=== PATIENT | male | born 1980 | race Caucasian/White ===

== ENCOUNTER 2016-05-09 09:08 | Inpatient (IN) | payer OTHER ==
[~2016-05-09] VITALS: Ht 175.3 cm; Wt 106.2 kg
[2016-05-09] VITALS (8 sets, daily range): BP systolic 134–154; BP diastolic 80–90; PULSE 75–87; TEMP 36.4–36.9; O2SAT 92–97; Ht 175.3 cm; Wt 106.2 kg
[~2016-05-09 09:08] MED LIST: AMOX875T PO; ASPI-390 PO; orajel TOP
--- NOTE | 2016-05-09 10:02 | EMERGENCY ROOM VISIT NOTE ---
History First contact with patient: 09:48 Chief Complaint: FEVER Stated Complaint: FEVER,SWELLING TO FACE History of Present Illness The patient is a 35 year old male who presents to the Emergency Room with complaints of diffuse left sided face pain commencing in the left teeth and affecting the face, ears, eyes and throat. This gnawing sensation had commenced 1 week ago and acutely worsened two days ago. He had attempted to call some dentists for appointments but was unable to book one for various reasons including insurance issues. Patient had visited the ED yesterday where he was administered IV antibiotics and IV pain medication. After CT scans which showed no intracranial pathology, but dental caries and infection of facial tissue, he was discharged with Luz and a prescription for amoxicillin. However, patient says symptoms worsened further overnight, despite the analgesia. He has begun to experience chills alternating with diaphoresis. He is experiencing difficulty in opening his jaw and is finding it extremely painful to swallow. The pain radiating to his eyes and ear is described as sharp and are causing him to moan and writhe. Past Medical/Surgical History Medical Problems: (1) No significant medical problems Social History Smoking Status: Never Smoker Alcohol Use: occasionally Marital Status: Occupation Status: employed Current/Historical Medications Scheduled Amoxicillin & Pot Clavulanate (Augmentin 875-125 mg), 1 TAB PO BID Scheduled PRN Benzocaine (Dental) (Oral Analgesic Maximum St), 1 APPLN MT UD PRN for Pain Oxycodone Immediate Rel Tab (Roxicodone Ir), 1-2 TAB PO Q4H PRN for Severe Pain Allergies Coded Allergies: No Known Allergies (Verified , 05/09/16) Physical Exam Vital Signs Date Time Temp Pulse Resp B/P Pulse Ox O2 Delivery O2 Flow Rate FiO2 05/09/16 11:36 76 151/96 95 Room Air 05/09/16 10:58 92 Room Air 05/09/16 09:16 37.4 102 20 145/88 92 Room Air Physical Exam GENERAL: alert, lying in bed, significant distress, non-toxic HEAD: Normocephalic, atraumatic. Bilateral sinus tenderness, worse on left Minimal swelling on left side of face EYES: PERRL, EOMI, minor conjunctival injection OROPHARYNX: Difficulty in opening mouth. No erythema in along upper/posterior oropharynx, but unable to view and assess tonsils. Poor dental hygiene. Lips, buccal mucosa, and tongue normal and mucous membranes are dry EARS: Tympanic membranes show white plaques bilaterally suggestive of sclerotic lesion. ?perforation in right ear. No indication of effusion. NECK: No nuchal rigidity, cervical adenopathy present, tender to palpation LUNGS: Clear to auscultation. Normal chest wall mechanics, good air entry. No crepitations, crackles, or wheezes HEART: no murmurs, S1 normal and S2 normal CHEST: No reproducible tenderness. ABDOMEN: abdomen soft, non-tender, normo-active bowel sounds, no masses, no rebound or guarding. SKIN: Warm, pink, dry. No erythema, rashes, or bruising. EXTREMITIES: Grossly normal. Strength 5/5 in all 4 limbs. No pitting edema. Calves non tender. Strength 5/5 bilaterally. NEURO: Alert, Ox3. No focal deficits. Normal sensorium, cranial nerves II-XII grossly intact, normal speech. Medical Decision & Procedures Laboratory Results 05/09/16 10:39 Red Blood Count 5.29, Mean Corpuscular Volume 91.3, Mean Corpuscular Hemoglobin 31.9, Mean Corpuscular Hemoglobin Concent 35.0, Mean Platelet Volume 10.3, Neutrophils (%) (Auto) 76.1, Lymphocytes (%) (Auto) 13.7, Monocytes (%) (Auto) 8.2, Eosinophils (%) (Auto) 1.5, Basophils (%) (Auto) 0.4, Neutrophils # (Auto) 8.49, Lymphocytes # (Auto) 1.53, Monocytes # (Auto) 0.91, Eosinophils # (Auto) 0.17, Basophils # (Auto) 0.04 05/09/16 10:39 Test 05/09/16 10:39 White Blood Count 11.15 K/uL (4.8-10.8) Red Blood Count 5.29 M/uL (4.7-6.1) Hemoglobin 16.9 g/dL (14.0-18.0) Hematocrit 48.3 % (42-52) Mean Corpuscular Volume 91.3 fL (80-100) Mean Corpuscular Hemoglobin 31.9 pg (25-34) Mean Corpuscular Hemoglobin Concent 35.0 g/dl (32-36) Platelet Count 233 K/uL (130-400) Mean Platelet Volume 10.3 fL (7.4-10.4) Neutrophils (%) (Auto) 76.1 % Lymphocytes (%) (Auto) 13.7 % Monocytes (%) (Auto) 8.2 % Eosinophils (%) (Auto) 1.5 % Basophils (%) (Auto) 0.4 % Neutrophils # (Auto) 8.49 K/uL (1.4-6.5) Lymphocytes # (Auto) 1.53 K/uL (1.2-3.4) Monocytes # (Auto) 0.91 K/uL (0.11-0.59) Eosinophils # (Auto) 0.17 K/uL (0-0.5) Basophils # (Auto) 0.04 K/uL (0-0.2) RDW Standard Deviation 42.3 fL (36.4-46.3) RDW Coefficient of Variation 12.6 % (11.5-14.5) Immature Granulocyte % (Auto) 0.1 % Immature Granulocyte # (Auto) 0.01 K/uL (0.00-0.02) Anion Gap 7.0 mmol/L (3-11) Est Creatinine Clear Calc Drug Dose 87.6 ml/min Estimated GFR () 74.4 Estimated GFR (Non- 64.2 BUN/Creatinine Ratio 8.8 (10-20) Calcium Level 8.8 mg/dl (8.5-10.1) Medications Administered Medications (Trade) Dose Ordered Sig/Gil Route Start Time Stop Time Status Last Admin Dose Admin Ampicillin Sodium/ Sulbactam Sodium/ Sodium Chloride (Unasyn Inj/Nss 100ml) 108 ml @ 200 mls/hr NOW STAT IV 05/09/16 10:13 05/09/16 10:45 DC 05/09/16 10:37 200 MLS/HR Morphine Sulfate 2 mg 2 mg ONE STAT IV 05/09/16 10:13 05/09/16 11:20 DC 05/09/16 10:34 2 MG Sodium Chloride (Nss 1000ml) 1,000 ml @ 500 mls/hr Q2H IV 05/09/16 10:15 06/08/16 10:14 05/09/16 10:37 500 MLS/HR Medical Decision 35 male re-presents to ED with odontalgia and facial cellulitis and worsening trismus Differentials included but were not limited to Sinus infection, dental carries, facial cellulitis, facial abscess, osteonecrosis of the jaw, tetanus, TMJ pain CT reviewed from yesterday: 1. There are numerous dental caries and periapical lucencies identified. Cortical breakthrough is seen seen involving the periapical lucencies of the right central maxillary incisor and the left maxillary canine. Follow-up with dentistry is recommended. 2. There is mild inflammation involving the superficial and deep soft tissues overlying the left aspect of the maxilla and mandible. This likely represents cellulitis. No organized fluid collection is seen to indicate abscess. 3. Mildly enlarged left cervical lymph nodes are likely on a reactive basis. Patient was started on 3000mg IV ampicillin/sulbactam and given 2mg IV morphine for symptom relief. Lab work was performed: CBC showed borderline elevated of WBC, and BMP unremarkable. Blood cultures taken- results currently pending. Spoke to hospitalist Dr. Cobb, who is agreeable to assess patient for admission for IV antibiotics and analgesia Went to update the patient and his . Patient lying calmly in bed, says edge of pain taken care of and declines need for further analgesia at this time. Dispo: Patient for admission Impression Primary Impression: Odontalgia Additional Impressions: Facial cellulitis, Trismus Departure Information Dispostion Being Evaluated By Hospitalist Condition FAIR Referrals Froylan Albrecht M.D. (PCP) Patient Instructions A Signature Page, My [facility]
[2016-05-09] MEDS ORDERED: BENZ1GEL2 MT (10:04)
[2016-05-09] MEDS ORDERED: OXYC1TAB3 PO (10:04)
[2016-05-09] MEDS ORDERED: AMPICILLIN/SULBACTAM SOD INJ 3,000 MG in SODIUM CHLORIDE 0.9% 100ML 100 ML IV STA (10:13)
[2016-05-09] MEDS ORDERED: MoRPHine SULFATE 2 MG/ML CARP IV STA (10:13)
[2016-05-09] MEDS: SODIUM CHLORIDE 0.9% 1000ML 1,000 ML IV SCH ×4 (10:37→21:36)
[2016-05-09] MEDS ORDERED: MoRPHine SULFATE 4 MG/ML 1 ML CARP\\VIAL IV PRN (11:00)
[2016-05-09] MEDS ORDERED: ACETAMINOPHEN 325 MG TAB PO PRN (11:00)
[2016-05-09] MEDS ORDERED: LORAZEPAM 2 MG/ML 1 ML VIAL IV PRN ×2 (11:00→13:30)
[2016-05-09] MEDS ORDERED: ALUMINUM/MAGNESIUM/SIMETH (MAALOX MAX) 30 ML UDC PO PRN (11:00)
[2016-05-09] MEDS ORDERED: ONDANSETRON INJ 2 MG/ML 2 ML VIAL IV PRN (11:00)
[2016-05-09] MEDS ORDERED: MAGNESIUM HYDROXIDE SUSP 30 ML UDC PO PRN (11:00)
[2016-05-09 11:05] LABS: BASO % 0.4 %; BASO ABS # 0.04 K/uL (0-0.2); COMPLETE YES; EOS % 1.5 %; HEMATOCRIT 48.3 % (42-52); IG% 0.1 %; LYMPH % 13.7 %; LYMPH ABS # 1.53 K/uL (1.2-3.4); MEAN CELL VOLUME 91.3 fL (80-100); MEAN CORPUSCULAR HEMOGLOBIN 31.9 pg (25-34); MEAN PLATELET VOLUME 10.3 fL (7.4-10.4); MONO % 8.2 %; NEUT % 76.1 %; PLATELET COUNT 233 K/uL (130-400); RED BLOOD COUNT 5.29 M/uL (4.7-6.1); WHITE BLOOD COUNT 11.15 K/uL (4.8-10.8)
[2016-05-09 11:11] LABS: BUN/CREATININE RATIO 8.8 (10-20); CALCIUM 8.8 mg/dl (8.5-10.1); CREATININE 1.4 mg/dl (0.60-1.40); POTASSIUM 3.8 mmol/L (3.5-5.1)
--- NOTE | 2016-05-09 11:17 | History and Physical ---
History & Physical Date & Time of Service: May 09, 2016 at 11:04 Chief Complaint: Fever,Swelling To Face Primary Care Physician: Froylan Albrecht M.D. History of Present Illness Source: patient, family Patient is a 35 y/o male, with no significant PMHx, who presented to the ED because of left-sided facial pain. He was seen on 05/08 in the ED because of facial pain. CT showed inflammation of superficial and deep maxilla and mandible swelling. He was discharged home with Augmentin and Luz for pain control. History can as patient is in moderate distress due to pain. Since his discharge home from the ED yesterday, his pain has worsened. He also complains of fever and chills. Per she found patient curled up next to the fire place this morning because he was so cold. also states patient appears more confused today, stating he has a difficult time stating his birthday earlier today. Per , he needs a lot of work done to his teeth, but has been having trouble finding a dentist to do the work. Patient does use smokeless tobacco. ROS was not obtained due to patient's status. Past Medical/Surgical History Medical Problems: (1) No significant medical problems Status: Chronic Family History No pertinent family history Social History Smoking Status: Never Smoker Smokeless Tobacco Use: Yes Marital Status: Housing status: lives with family Occupational Status: employed Immunizations History of Influenza Vaccine: No History of Tetanus Vaccine?: Yes Tetanus Immunization Date: May 10, 2004 History of Pneumococcal: No History of Hepatitis B Vaccine: No Multi-Drug Resistant Organisms History of MDRO: No Allergies Coded Allergies: No Known Allergies (Verified , 05/09/16) Home Medications Scheduled Amoxicillin & Pot Clavulanate (Augmentin 875-125 mg), 1 TAB PO BID Scheduled PRN Benzocaine (Dental) (Oral Analgesic Maximum St), 1 APPLN MT UD PRN for Pain Oxycodone Immediate Rel Tab (Roxicodone Ir), 1-2 TAB PO Q4H PRN for Severe Pain Physical Exam Vital Signs Date Time Temp Pulse Resp B/P Pulse Ox O2 Delivery O2 Flow Rate FiO2 05/09/16 09:16 37.4 102 20 145/88 92 Room Air General Appearance: + moderate distress Head: normocephalic, atraumatic Eyes: normal inspection, PERRL ENT: hearing grossly normal, + pertinent finding (No obvious facial swelling. Poor dentition. Malrdorous breath ) Neck: supple Respiratory/Chest: lungs clear, no respiratory distress, no accessory muscle use Cardiovascular: no edema, normal peripheral pulses, + tachycardia Abdomen/GI: normal bowel sounds, non tender, soft Back: normal inspection Extremities/Musculoskelatal: no calf tenderness, no pedal edema Neurologic/Psych: alert, normal mood/affect, oriented x 3 Skin: normal color, warm/dry, no rash Diagnostics Laboratory Results Results Past 24 Hours Test 05/09/16 10:39 Range/Units Microbiology Results 05/09/16 Blood Culture, Silverio Batch Pending 05/09/16 Blood Culture, Silverio Batch Pending Diagnostic Radiology CT SCAN OF THE NECK WITH IV CONTRAST CLINICAL HISTORY: Left jaw and neck pain. COMPARISON STUDY: CT scan of the neck dated 01/04/2013. TECHNIQUE: Following the IV administration of 115 cc of Optiray 320, CT scan of the soft tissues of the neck was performed from the skull base to the upper chest. Images are reviewed in the axial, sagittal, and coronal planes. IV contrast was administered without complication. FINDINGS: Pharynx: The nasopharynx, oropharynx, and laryngeal pharynx are normal in appearance. The pharyngeal airway is widely patent. There is no evidence of mass lesion. The vocal cords are symmetric. The parapharyngeal fat is well maintained. The prevertebral/retropharyngeal soft tissues are within normal limits. The epiglottis is normal. Lymphadenopathy: There are numerous mildly enlarged cervical lymph nodes, likely reactive basis. The largest measures up to 1.7 cm in length Thyroid: Normal in size and attenuation. Salivary glands: The parotid and submandibular glands are within normal limits. Brain parenchyma: The visualized brain parenchyma at the skull base is normal in appearance. Vascular structures: The internal jugular veins and carotid arteries are widely patent.. Skeletal structures: Imaged portions of the calvarium at the skull base are within normal limits. The cervical spine appears intact. Dentition: There are numerous dental caries identified. There is a periapical lucency identified involving the left mandibular molar. There is a large periapical lucency identified involving the right maxillary incisor with overlying cortical breakthrough. A periapical lucency with cortical breakthrough is also seen involving the left maxillary canine. There is mild inflammation of the superficial and deep soft tissues overlying the left maxilla and mandible. No organized fluid collection is seen to indicate abscess. Sinuses and mastoids: There is trace mucosal thickening within the maxillary antra. Mucosal thickening is partially imaged in the ethmoid sinuses. The mastoid air cells are well pneumatized. Lung apices: Visualized apical lung parenchyma is clear. IMPRESSION: 1. There are numerous dental caries and periapical lucencies identified. Cortical breakthrough is seen seen involving the periapical lucencies of the right central maxillary incisor and the left maxillary canine. Follow-up with dentistry is recommended. 2. There is mild inflammation involving the superficial and deep soft tissues overlying the left aspect of the maxilla and mandible. This likely represents cellulitis. No organized fluid collection is seen to indicate abscess. 3. Mildly enlarged left cervical lymph nodes are likely on a reactive basis. Electronically signed by: Bay Dixon M.D. 05/08/2016 8:48 PM The status of this report is Signed. Draft = Not yet reviewed or approved by Radiologist. Signed = Reviewed and approved by Radiologist. CT SCAN OF THE BRAIN WITHOUT IV CONTRAST CLINICAL HISTORY: Headache. COMPARISON STUDY: No priors. TECHNIQUE: Unenhanced axial CT scan of the brain is performed from the vertex to the skull base. Automated dose control exposure was utilized. The patient was scanned twice due to motion artifact. CT DOSE: 1850.29 mGy.cm FINDINGS: Brain parenchyma: The brain parenchyma is normal in appearance. There is no hemorrhage, mass effect, or evidence of acute territorial ischemia by CT criteria. Courtney-white matter is preserved. No extra-axial fluid collection is seen. A 2 mm hyperdense focus at the top of the third ventricle may represent a tiny colloid cyst. Ventricles, sulci, cisterns: Normal in configuration. Intracranial vasculature: The visualized intracranial vasculature at the skull base is normal in appearance. Calvarium: Unremarkable. Sinuses and mastoids: Mild mucosal thickening is noted in the frontal and ethmoid sinuses. The remaining visualized paranasal sinuses are clear. The mastoid air cells are well pneumatized. Orbits: The bony orbits are grossly intact. IMPRESSION: No acute intracranial abnormality. Electronically signed by: Bay Dixon M.D. 05/08/2016 8:03 PM The status of this report is Signed. Draft = Not yet reviewed or approved by Radiologist. Signed = Reviewed and approved by Radiologist. Impression Assessment and Plan 35 y/o male, with no significant PMHx, who presented to the ED because of left- sided facial pain. Facial cellulitis: -Admit med/surg -IV Unasyn -Consult oral maxillary surgeon, appreciate recommendations -NPO, pending surgical consult -IV Dilaudid PRN for pain control -IV Ativan PRN -Blood cultures pending -Follow CBC and BMP --CBC and BMP pending at admission -Patient is having trouble finding a dentist; consult protective services social worker GI Prophylaxis: -Maalox PRN -IV Zofran PRN -Colace and/or Milk of Mag PRN DVT prophylaxis: -Hold any chemical therapy due to possibility of surgical intervention -SAMI and SCDs Code Status: -LEVEL I, FULL Level of Care Med/Surg Resuscitation Status FULL RESUSCITATION VTE Prophylaxis VTE Risk Assessment Done? Y/N: Yes Risk Level: Low Given or contraindicated: T.E.D. Stockings, SCD's Reviewed: Pt Seen/Exam by Me, RN Notes, HO Notes, Prior Records, Labs History I agree with PA H&P with some modifications as below 35 y/o male, with no significant PMHx, who presented to the ED because of left- sided facial pain. Constitutional: denies: chills, malaise EENTM: acknowledges: mouth pain, mouth swelling, other (left facial pain) Respiratory: negative: cough Cardiovascular: denies chest pain Gastrointestinal/Abdominal: negative: abdominal pain Genitourinary: negative discharge Musculoskeletal: negative: back pain Skin: negative: see HPI Neurological/Psych: negative: anxiety Hematologic/Lymphatic: negative: anemia General Appearance: WD/WN, no apparent distress Eye Exam: bilateral eye normal inspection Ears, Nose, Throat: trismus, other (left facial swelling) Neck: non-tender, supple Respiratory: chest non-tender, no accessory muscle use Cardiovascular: normal peripheral pulses, no gallop Gastrointestinal: non tender, no organomegaly Extremities: normal inspection, no pedal edema Neurologic/Psychiatric: alert, oriented x 3 Skin Characteristics: normal color, warm/dry Assessment/Plan 35 y/o male, with no significant PMHx, who presented to the ED because of left- sided facial pain. Facial cellulitis: admit med/surg cont IV Unasyn start IV dexamethasone Consult oral maxillary surgeon, appreciate recommendations NPO, pending surgical consult IV Dilaudid PRN for pain control IV Ativan PRN Blood cultures pending Follow CBC and BMP Patient has no dentist; consult protective services social worker DVT prophylaxis: Hold any chemical therapy due to possibility of surgical intervention SAMI and SCDs Code Status: FULL Case discussed with KESHAWN Hall time spent 45 min
--- NOTE | 2016-05-09 11:30 | EMERGENCY ROOM VISIT NOTE ---
History Report prepared by Klaudia: Nash Lackey Under the Supervision of: Dr. Paul Wiggins D.O. First contact with patient: 09:48 Chief Complaint: FEVER Stated Complaint: FEVER,SWELLING TO FACE History of Present Illness The patient is a 35 year old male who presents to the Emergency Room with complaints of worsening left sided facial pain that started a week ago. The pain has worsened overnight. The patient was in the ED yesterday and was evaluated for the same complaint. He says he is weak, and is having more difficulty swallowing. The patient also notes sweating, chills, and more pain in his ear that is radiating into his eye. He had a temperature of 99 overnight. Yesterday at the ED, the patient had a CT scan of his head, which showed no intracranial pathology. He also had a CT of his neck done, which showed dental caries. He was given IV antibiotics and pain medications and was discharged with Amoxicillin and Roxicodone. The patient notes no pain relief since then. He called a couple dentists but he had insurance issues. Source of History: patient Onset: A week ago Position: other (face - left side) Timing: worsening Associated Symptoms: + chills, + diaphoresis, + weakness Note: Associated symptoms: Ear pain that is radiating into eye, difficulty swallowing. Review of Systems See HPI for pertinent positives & negatives. A total of 10 systems reviewed and were otherwise negative. Past Medical & Surgical Medical Problems: (1) No significant medical problems Family History No pertinent family history Social History Smoking Status: Never Smoker Alcohol Use: occasionally Marital Status: Occupation Status: employed Current/Historical Medications Scheduled Amoxicillin & Pot Clavulanate (Augmentin 875-125 mg), 1 TAB PO BID Scheduled PRN Benzocaine (Dental) (Oral Analgesic Maximum St), 1 APPLN MT UD PRN for Pain Oxycodone Immediate Rel Tab (Roxicodone Ir), 1-2 TAB PO Q4H PRN for Severe Pain Allergies Coded Allergies: No Known Allergies (Verified , 05/09/16) Physical Exam Vital Signs Date Time Temp Pulse Resp B/P Pulse Ox O2 Delivery O2 Flow Rate FiO2 05/09/16 10:58 92 Room Air 05/09/16 09:16 37.4 102 20 145/88 92 Room Air Physical Exam CONSTITUTIONAL/VITAL SIGNS: Reviewed / noted above. GENERAL: Non-toxic in appearance. INTEGUMENTARY: Warm, dry, and [place]. HEAD: Diffused left-sided facial tenderness, mild swelling compared to opposing side. EYES: without scleral icterus or trauma. ENT/OROPHARYNX: Clear and moist. Global poor dental hygiene. LYMPHADENOPATHY/NECK: Is supple without lymphadenopathy or meningismus. RESPIRATORY: Lungs clear and equal. CARDIOVASCULAR: Regular rate and rhythm. GI/ABDOMEN: Soft and nontender. No organomegaly or pulsatile mass. No rebound or guarding. Normal bowel sounds. EXTREMITIES: Warm and well perfused. BACK: No CVA tenderness. NEUROLOGICAL: Intact without focal deficits. PSYCHIATRIC: normal affect. MUSCULOSKELETAL: Normally developed with good muscle tone. Medical Decision & Procedures Laboratory Results 05/09/16 10:39 Red Blood Count 5.29, Mean Corpuscular Volume 91.3, Mean Corpuscular Hemoglobin 31.9, Mean Corpuscular Hemoglobin Concent 35.0, Mean Platelet Volume 10.3, Neutrophils (%) (Auto) 76.1, Lymphocytes (%) (Auto) 13.7, Monocytes (%) (Auto) 8.2, Eosinophils (%) (Auto) 1.5, Basophils (%) (Auto) 0.4, Neutrophils # (Auto) 8.49, Lymphocytes # (Auto) 1.53, Monocytes # (Auto) 0.91, Eosinophils # (Auto) 0.17, Basophils # (Auto) 0.04 05/09/16 10:39 Test 05/09/16 10:39 White Blood Count 11.15 K/uL (4.8-10.8) Red Blood Count 5.29 M/uL (4.7-6.1) Hemoglobin 16.9 g/dL (14.0-18.0) Hematocrit 48.3 % (42-52) Mean Corpuscular Volume 91.3 fL (80-100) Mean Corpuscular Hemoglobin 31.9 pg (25-34) Mean Corpuscular Hemoglobin Concent 35.0 g/dl (32-36) Platelet Count 233 K/uL (130-400) Mean Platelet Volume 10.3 fL (7.4-10.4) Neutrophils (%) (Auto) 76.1 % Lymphocytes (%) (Auto) 13.7 % Monocytes (%) (Auto) 8.2 % Eosinophils (%) (Auto) 1.5 % Basophils (%) (Auto) 0.4 % Neutrophils # (Auto) 8.49 K/uL (1.4-6.5) Lymphocytes # (Auto) 1.53 K/uL (1.2-3.4) Monocytes # (Auto) 0.91 K/uL (0.11-0.59) Eosinophils # (Auto) 0.17 K/uL (0-0.5) Basophils # (Auto) 0.04 K/uL (0-0.2) RDW Standard Deviation 42.3 fL (36.4-46.3) RDW Coefficient of Variation 12.6 % (11.5-14.5) Immature Granulocyte % (Auto) 0.1 % Immature Granulocyte # (Auto) 0.01 K/uL (0.00-0.02) Anion Gap 7.0 mmol/L (3-11) Est Creatinine Clear Calc Drug Dose 87.6 ml/min Estimated GFR () 74.4 Estimated GFR (Non- 64.2 BUN/Creatinine Ratio 8.8 (10-20) Calcium Level 8.8 mg/dl (8.5-10.1) Laboratory results as stated above per my review. Medications Administered Medications (Trade) Dose Ordered Sig/Gil Route Start Time Stop Time Status Last Admin Dose Admin Ampicillin Sodium/ Sulbactam Sodium/ Sodium Chloride (Unasyn Inj/Nss 100ml) 108 ml @ 200 mls/hr NOW STAT IV 05/09/16 10:13 05/09/16 10:45 DC 05/09/16 10:37 200 MLS/HR Morphine Sulfate 2 mg 2 mg ONE STAT IV 05/09/16 10:13 05/09/16 11:20 DC 05/09/16 10:34 2 MG Sodium Chloride (Nss 1000ml) 1,000 ml @ 500 mls/hr Q2H IV 05/09/16 10:15 06/08/16 10:14 05/09/16 10:37 500 MLS/HR ED Course 1013: Ordered Morphine Sulfate Inj 2 mg IV, Ampicillin Sodium/Sulbactam Sodium 3000 mg/Sodium Chloride 108 ml @ 200 mls/hr IV. 1015: Ordered NSS 1000 ml @ 500 mls/hr IV. 1029: I discussed the patient with Dr. Cobb - [facility] hospitalist - he will evaluate the patient for further treatment. 1041: The resident previously evaluated the patient. Previous medical records were reviewed. The patient was evaluated in room C5. A complete history and physical examination was performed. The patient verbally expressed agreement and understanding of the treatment plan. The patient will be evaluated for further treatment. Medical Decision This a 35-year-old male who presents to the ED with a chief complaint of left facial pain. The patient also reports that his pain increases with moving his mouth and he is unable to move his mouth completely. The patient was seen here less than 12 hours ago and had a CT scan of his face that revealed both superficial and deep tissue cellulitis of the left mandibular region. He was given IV Unasyn last night and sent home with Augmentin and pain medication. He is taking the narcotic pain medication orally but this does not seem to help his pain. The patient has tenderness to palpation of his left facial area. There is some mild increased swelling. Intraorally there is diffuse poor dental hygiene. His white blood cell count is 11,000. Chemistry panel was unremarkable. The patient will be seen by the hospitalist service. IV Unasyn and IV Morphine was given. Differential diagnosis: Etiologies such as cellulitis, abscess, MRSA infection, DVT, necrotizing fasciitis, dermatitis, drug eruption, as well as others were entertained.. Consults Time Called: 1027 Consulting Physician: Dr. Reza ERAZO hospitalist Returned Call: 1023 I discussed the patient with Dr. Reza ERAZO hospitalconcetta - he will evaluate the patient for further treatment. Impression Primary Impression: Facial cellulitis Scribe Attestation The scribe's documentation has been prepared under my direction and personally reviewed by me in its entirety. I confirm that the note above accurately reflects all work, treatment, procedures, and medical decision making performed by me. Departure Information Dispostion Being Evaluated By Hospitalist Referrals Froylan Albrecht M.D. (PCP) Patient Instructions A Signature Page, My [facility]
[2016-05-09] MEDS ORDERED: POLYETHYLENE (MIRALAX) 17 GM PACK PO PRN (12:00)
[2016-05-09] MEDS: HYDROmorphone INJ 1 MG/ML SYR IV PRN ×2 (12:52→13:20)
[2016-05-09] MEDS ORDERED: DEXAMETHASONE IV ONE (13:04)
[2016-05-09] MEDS ORDERED: SODIUM CHLORIDE 0.9% 1000ML 1,000 ML IV SCH (13:21)
[2016-05-09] MEDS ORDERED: NALOXONE HCL 0.4 MG/1 ML VIAL/CARP IV PRN (13:30)
[2016-05-09] MEDS ORDERED: HYDROmorphone INJ 1 MG/ML SYR IV ONE (13:30)
[2016-05-09] MEDS ORDERED: NURSING VERBAL MED ORDER ONE ×3 (13:30→16:30)
[2016-05-09] MEDS ORDERED: LORAZEPAM INJ 1 MG in SYRINGE 0.5 ML IV PRN (13:30)
[2016-05-09] MEDS ORDERED: AMPICILLIN/SULBACTAM SOD INJ 3,000 MG in SODIUM CHLORIDE 0.9% 100ML 100 ML IV SCH (14:00)
[2016-05-09] MEDS: HYDROmorphone HCL 0.5MG/ML 50 ML CASSETTE IV PRN ×3 (14:04→18:55)
[2016-05-09] MEDS: AMPICILLIN/SULBACTAM SOD INJ 3,000 MG in SODIUM CHLORIDE 0.9% 100ML 100 ML IV SCH ×2 (16:52→23:23)
[2016-05-09] MEDS ORDERED: DEXAMETHASONE INJ 4 MG in SYRINGE 0 ML IV SCH (17:45)
[2016-05-09] MEDS: DEXAMETHASONE INJ 8 MG in SYRINGE 0 ML IV SCH ×2 (18:10→23:23)
[2016-05-09] MEDS: DOCUSATE SODIUM 100 MG CAP PO SCH ×2 (20:41→21:37)
[2016-05-10 03:50] VITALS: BP 113/65; PULSE 91; TEMP 36.5; O2SAT 94
[2016-05-10 05:26] LABS: HEMATOCRIT 43.5 % (42-52); MEAN CORPUSCULAR HEMOGLOBIN 31.8 pg (25-34); MEAN CORPUSCULAR HGB CONC 34.9 g/dl (32-36); MEAN PLATELET VOLUME 10.3 fL (7.4-10.4); PLATELET COUNT 237 K/uL (130-400); RED BLOOD COUNT 4.78 M/uL (4.7-6.1); WHITE BLOOD COUNT 15.64 K/uL (4.8-10.8)
[2016-05-10 05:50] LABS: BUN/CREATININE RATIO 11.1 (10-20); CALCIUM 8.5 mg/dl (8.5-10.1); CREATININE 1.1 mg/dl (0.60-1.40); POTASSIUM 4.1 mmol/L (3.5-5.1)
[2016-05-10] MEDS: AMPICILLIN/SULBACTAM SOD INJ 3,000 MG in SODIUM CHLORIDE 0.9% 100ML 100 ML IV SCH ×3 (06:12→18:13)
[2016-05-10] MEDS: DEXAMETHASONE INJ 8 MG in SYRINGE 0 ML IV SCH (06:12)
[2016-05-10] MEDS: SODIUM CHLORIDE 0.9% 1000ML 1,000 ML IV SCH (06:13)
[2016-05-10] MEDS: HYDROmorphone HCL 0.5MG/ML 50 ML CASSETTE IV PRN (07:10)
[2016-05-10 07:17] VITALS: BP 128/87; PULSE 79; TEMP 36.4; O2SAT 90
[2016-05-10] MEDS: DOCUSATE SODIUM 100 MG CAP PO SCH (07:40)
[2016-05-10] MEDS ORDERED: OXYCODONE/ACETAMINOPHEN 5-325 TAB PO PRN (10:00)
[2016-05-10] MEDS: DEXAMETHASONE INJ 6 MG in SYRINGE 0 ML IV SCH ×2 (11:36→18:33)
--- NOTE | 2016-05-10 13:10 | Progress Note ---
Subjective Subjective Date of Service: May 10, 2016. Pt evaluation today including: conversation w/ patient, physical exam, chart review, review of studies, review of inpatient medication list Problem List Medical Problems: (1) Dental caries Status: Acute (2) Facial cellulitis Status: Acute (3) Facial cellulitis Status: Acute (4) Odontalgia Status: Acute (5) Odontalgia Status: Acute (6) Trismus Status: Acute Review of Systems Constitutional: No fever, No weight loss ENT: No hearing loss Respiratory: No cough Cardiac: No chest pain Abdomen: No pain Male : No dysuria Neurologic: No memory loss Psychiatric: No depression symptoms Endo: No fatigue Physical Exam Vital Signs Vital Signs Past 24 Hours: Date Time Temp Pulse Resp B/P Pulse Ox O2 Delivery O2 Flow Rate FiO2 05/10/16 07:45 Room Air 05/10/16 07:17 36.4 79 18 128/87 90 Room Air 05/10/16 03:50 36.5 91 16 113/65 94 Room Air 05/09/16 23:51 36.9 75 16 136/86 95 Room Air 05/09/16 19:30 Room Air 05/09/16 18:01 36.4 79 16 149/80 93 05/09/16 17:01 36.8 79 16 136/90 92 Nasal Cannula 05/09/16 15:57 36.6 75 16 148/84 97 Room Air 05/09/16 15:03 36.7 87 18 134/83 92 Room Air 05/09/16 14:12 Nasal Cannula 2.0 95 05/09/16 13:07 Room Air Physical Exam: General Appearance: WD/WN, no apparent distress Eyes: bilateral eyes normal inspection ENT: hearing grossly normal, pharynx normal Neck: supple, no JVD Respiratory/Chest: lungs clear, no respiratory distress Cardiovascular: no edema, no gallop Abdomen: normal bowel sounds, soft Extremities: normal inspection, no pedal edema Neurologic/Psychiatric: alert, oriented x 3 Skin: normal color, warm/dry Medications Medications: Current Inpatient Medications Medications (Trade) Dose Ordered Sig/Gil Route Start Time Stop Time Status Last Admin Dose Admin Acetaminophen (Tylenol Tab) 650 mg Q4H PRN PO 05/09/16 11:00 06/08/16 10:59 Al Hydrox/Mg Hydrox/Simethicone (Maalox Max Susp) 15 ml Q4H PRN PO 05/09/16 11:00 06/08/16 10:59 Magnesium Hydroxide (Milk Of Magnesia Susp) 30 ml Q6H PRN PO 05/09/16 11:00 06/08/16 10:59 05/09/16 23:26 30 ML Polyethylene (Miralax Powder Packet) 17 gm DAILY PRN PO 05/09/16 12:00 06/08/16 11:59 05/10/16 06:12 17 GM Ondansetron HCl (Zofran Inj) 4 mg Q6H PRN IV 05/09/16 11:00 06/08/16 10:59 Morphine Sulfate (MoRPHine SULFATE INJ) 3 mg Q3H PRN IV 05/09/16 11:00 05/23/16 10:59 Hydromorphone HCl 1 mg 1 mg Q3H PRN IV 05/09/16 11:30 05/24/16 11:29 05/09/16 13:20 1 MG Lorazepam/Syringe (Ativan Inj/ Syringe) 1 ml @ 1 mls/min Q4 PRN IV 05/09/16 13:30 06/08/16 13:29 Lorazepam 1 mg 1 mg Q4 PRN IV 05/09/16 13:30 06/08/16 13:29 Ampicillin Sodium/ Sulbactam Sodium 3000 mg/Sodium Chloride 108 ml @ 200 mls/hr Q6@0000,0600,1200,1800 IV 05/09/16 17:00 05/19/16 16:59 05/10/16 11:36 200 MLS/HR Dexamethasone Sodium Phosphate/ Syringe (Decadron Inj/ Syringe) 1.5 ml @ 1 mls/min Q6 IV 05/10/16 12:00 06/09/16 11:59 05/10/16 11:36 1 MLS/MIN Oxycodone/ Acetaminophen (Percocet 5-325MG Tab) 1 tab Q4H PRN PO 05/10/16 10:00 05/24/16 09:59 Laboratory Data Labs: Last 24 Hours Test 05/10/16 05:15 White Blood Count 15.64 K/uL Red Blood Count 4.78 M/uL Hemoglobin 15.2 g/dL Hematocrit 43.5 % Mean Corpuscular Volume 91.0 fL Mean Corpuscular Hemoglobin 31.8 pg Mean Corpuscular Hemoglobin Concent 34.9 g/dl RDW Standard Deviation 41.9 fL RDW Coefficient of Variation 12.6 % Platelet Count 237 K/uL Mean Platelet Volume 10.3 fL Sodium Level 141 mmol/L Potassium Level 4.1 mmol/L Chloride Level 105 mmol/L Carbon Dioxide Level 29 mmol/L Anion Gap 7.0 mmol/L Blood Urea Nitrogen 12 mg/dl Creatinine 1.10 mg/dl Est Creatinine Clear Calc Drug Dose 111.5 ml/min Estimated GFR () 99.6 Estimated GFR (Non- 85.9 BUN/Creatinine Ratio 11.1 Random Glucose 151 mg/dl Calcium Level 8.5 mg/dl Assessment and Plan 35 y/o male, with no significant PMHx, who presented to the ED because of left- sided facial pain. Facial cellulitis: cont med/surg cont IV Unasyn decrease IV dexamethasone to 6 mg q6h Consulted oral maxillary surgeon, appreciated recommendations, patient will follow at [facility] on wednesday and have root canal and teeth removed advance diet as tolerated IV Dilaudid PRN for pain control IV Ativan PRN Blood cultures pending Follow CBC and BMP Patient has no dentist; consult social work faculty member DVT prophylaxis: Hold any chemical therapy due to possibility of surgical intervention SAMI and SCDs Code Status: FULL likely d/c home tomorrow
[2016-05-10 15:09] VITALS: BP 140/81; PULSE 74; TEMP 36.5; O2SAT 95
[2016-05-10 23:10] VITALS: BP 157/80; PULSE 78; TEMP 36.6; O2SAT 95
[2016-05-11] MEDS: AMPICILLIN/SULBACTAM SOD INJ 3,000 MG in SODIUM CHLORIDE 0.9% 100ML 100 ML IV SCH ×3 (00:02→12:11)
[2016-05-11] MEDS: DEXAMETHASONE INJ 6 MG in SYRINGE 0 ML IV SCH ×3 (00:02→12:11)
[2016-05-11 05:44] LABS: HEMATOCRIT 44.1 % (42-52); MEAN CELL VOLUME 92.1 fL (80-100); MEAN CORPUSCULAR HEMOGLOBIN 31.5 pg (25-34); MEAN CORPUSCULAR HGB CONC 34.2 g/dl (32-36); MEAN PLATELET VOLUME 10.8 fL (7.4-10.4); PLATELET COUNT 281 K/uL (130-400); RED BLOOD COUNT 4.79 M/uL (4.7-6.1); WHITE BLOOD COUNT 20.53 K/uL (4.8-10.8)
[2016-05-11 06:18] LABS: BUN/CREATININE RATIO 16.4 (10-20); CALCIUM 8.4 mg/dl (8.5-10.1); POTASSIUM 4.1 mmol/L (3.5-5.1)
[2016-05-11 07:09] VITALS: BP 126/78; PULSE 79; TEMP 36.5; O2SAT 95
--- NOTE | 2016-05-11 12:40 | Discharge Instructions ---
Discharge Instructions Admission Reason for Admission: Facial Cellulitis Discharge Discharge Diagnosis / Problem: tooth infection, cellulitis Discharge Goals Goal(s): Increase independence, Improve disease control, Diagnostic testing, Therapeutic intervention Activity Recommendations Activity Limitations: resume your previous activity . Instructions / Follow-Up Instructions / Follow-Up finish antibiotics and take as needed medications for pain follow up [facility] tomorrow Current Hospital Diet Patient's current hospital diet: Regular Diet Discharge Diet Recommended Diet: Regular Diet (soft) Diet Texture: Dental Soft (bite-sized) Pending Studies Studies pending at discharge: no Medical Emergencies . Who to Call and When: Medical Emergencies: If at any time you feel your situation is an emergency, please call 911 immediately. . Non-Emergent Contact Non-Emergency issues call your: Primary Care Provider Call Non-Emergent contact if: you have a fever, your pain is not controlled . Past History Medical & Surgical History: (1) Odontalgia (2) Facial cellulitis . "Provider Documentation" section prepared by Shoaib Cobb. VTE Core Measure Inpt VTE Proph given/why not?: Daija Lock, SCD's
--- NOTE | 2016-05-11 12:42 | Discharge Summary ---
Discharge Summary Admission Date: May 09, 2016 at 11:04 Discharge Date: May 11, 2016 Discharge Disposition: Home Principal Diagnosis: tooth infection, cellulitis Immunizations: Have You Had Influenza Vaccine: No History of Tetanus Vaccine?: Yes Tetanus Immunization Date: May 10, 2004 History of Pneumococcal: No History of Hepatitis B Vaccine: No Consultations: oromax surgery Medication Reconciliation Continued Medications: Amoxicillin & Pot Clavulanate (Augmentin 875-125 mg) 1 Tab Tab 1 TAB PO BID for 9 Days, #18 TAB Benzocaine (Dental) (Oral Analgesic Maximum St) 20 % Gel 1 APPLN MT UD PRN for Pain Oxycodone Immediate Rel Tab (Roxicodone Ir) 5 Mg Tab 1-2 TAB PO Q4H PRN for Severe Pain, #24 TAB Referrals At Discharge Follow up Referrals: Physician Referral - Within a Month with Froylan Albrecht M.D. Discharge Exam Review of Systems: Constitutional: No chills ENT: No unusual epistaxis Respiratory: No sputum Cardiovascular: No orthopnea Abdomen: No nausea Musculoskeletal: No joint pain Genitourinary - Male: No dysuria Neurologic: No memory loss, No paralysis Hematologic / Lymphatic: No clotting problems Integumentary: No itch Physical Exam: General Appearance: WD/WN, no apparent distress Eyes: PERRL ENT: normal ENT inspection, pharynx normal, + pertinent finding (poor dentition) Neck: supple, no JVD Respiratory/Chest: lungs clear, no respiratory distress Cardiovascular: no gallop, no JVD Abdomen / GI: non tender, soft Extremities: no calf tenderness Neurologic/Psychiatric: normal mood/affect Skin: no rash Hospital Course 35 y/o male, with no significant PMHx, who presented to the ED because of left- sided facial pain. Facial cellulitis: d/c on po abx and po roxicodone as needed for pain Consulted oral maxillary surgeon, appreciated recommendations, patient will follow at [facility] on wednesday and have root canal and teeth removed advance diet as tolerated Blood cultures neg Patient has no dentist; consult social studies department chair d/c home, f/u PCP 2 weeks Total Time Spent: Greater than 30 minutes This includes examination of the patient, discharge planning, medication reconciliation, and communication with other providers. Discharge Instructions Please refer to the electronic Patient Visit Report (Discharge Instructions) for additional information. Additional Copies To Froylan Albrecht M.D.
--- NOTE | 2016-05-18 10:28 | SURGICAL CONSULTATION ---
DATE OF CONSULTATION: 05/09/2016 HISTORY OF PRESENT ILLNESS: Mr. Romulo Mora is a 35-year-old male who was admitted to [facility] for severe pain of the left side of the face. He had been in pain for about 1 week. The pain has become unbearable. He was in the ER the day before where he was given prescriptions for amoxicillin and pain medication. He returned today with worsening pain. A CT scan revealed dental abscesses and some mild inflammatory changes in the area of the maxilla and multiple caries lesion. PHYSICAL EXAMINATION: HEENT: He had no facial swelling. There is no skin erythema. No induration of the soft tissues. No neuropathy. I was able to have him produce a full range of motion of his temporomandibular joint and lower jaw. The floor of mouth oropharynx, vestibules, gingival tissues were all without any swelling. There is no trismus. He had multiple caries teeth in anterior maxilla with small fistula. This could account for the mild inflammatory changes seen on CT scan. However, these areas were not painful. The pain seemed localized more in the left lower quadrant and it is where he had multiply restored teeth. I do not see any single tooth that was the acute source of pain, but it could possibly be localizing to #19, as this tooth had a large composite sikh and may be suffering from acute pulpitis. ASSESSMENT: Currently, I do not see any major head, neck or odontogenic infection. It is more likely that he has some pulp necrosis and severe pulpitis. He does have a dental visit established with [facility] in 2 days. I believe few doses of IV antibiotics and a few doses of steroids may be of benefit. However, it is important that he follow up with [facility]. They can perform needed dental care, such as root canals and restorative procedures. At this point he does not definitively need any extractions or surgical intervention. I appreciate consult. Please contact me if there are any further questions. KLAUS
== END 2016-05-11 14:22 | disposition home or self-care (01) | DRG 603 ==
LOC: ENRESERVTM → ENRESERVDT → C.EDB 09:09 → C.3E 11:04 → UNDODISIN 05-11 13:26
PROVIDERS: ADMIT Hospitalist; ATTEND Hospitalist
DX: L03.211 Cellulitis of face (principal); K08.9 Disorder of teeth and supporting structures, unspecified; R25.2 Cramp and spasm; F17.290 Nicotine dependence, other tobacco product, uncomplicated; K02.9 Dental caries, unspecified; K04.7 Periapical abscess without sinus